=== PATIENT | male | born 1985 | race Caucasian/White ===

== ENCOUNTER 2016-05-28 18:14 | Emergency (ER) | payer MEDICAID ==
[~2016-05-28 18:14] MED LIST: DEPAKOTE PO; FLOMAX0.4 M1 PO; IBUPROFEN800 MG PO; LORTAB 5/500 TA1 TA2 PO; RISPERDAL PO
[2016-05-28 19:05] LABS: AMPHETAMINE NEG (NEG); BARBITURATES NEG (NEG); BENZODIAZEPINES NEG (NEG); COCAINE NEG (NEG); MARIJUANA NEG (NEG); OPIATES NEG (NEG); TRICYCLIC ANTIDEPRESSANTS NEG (NEG); U METHADONE NEG (NEG)
== END 2016-05-28 22:28 | disposition home or self-care (01) ==
LOC: SED 18:14
PROVIDERS: Physician Assistant
DX: F31.9 Bipolar disorder, unspecified (principal); F17.210 Nicotine dependence, cigarettes, uncomplicated
CPT/HCPCS: 36415; 80307; 82947; 99283; G0480

== ENCOUNTER 2016-06-29 13:50 | Emergency (ER) | payer MEDICAID ==
--- NOTE | ~2016-06-29 | CT71 ---
[facility] A Service of [facility] RADIOLOGY TEXT RESULTS PATIENT: NAE WHITING LOCATION: SED : 83 UNIT #: [id number] AGE: [address]: Tony Kelsey MD SEX: M ORDER DR: [id number] [place] [id number] E MR#: [id number] Acc #: [id number] NAME: NAE WHITING : 1985 SEX: M STUDY DATE/TIME: 06/29/2016 13:20 UNIT: SED ROOM: STUDY DESCRIPTION: CT Head Wo Contrast Attending Physician: Tony Kelsey M.D. Ordering Physician: Tony Kelesy M.D. Primary Care Physician: No Primary Care Physician MEDICAL IMAGING REPORT This report is preliminary unless electronic signature is present. EXAM CT of the head without contrast INDICATIONS 30-year-old male with headache since yesterday after falling. TECHNIQUE CT of the head was performed without contrast. This CT exam was performed with one or more of the following radiation dose reduction techniques: automatic control, adjustment of mA and/or kV according to patient size, and iterative reconstruction. COMPARISON Compared with 09/08/2011 FINDINGS Abnormal exam. There is acute nodular intraaxial hemorrhage located in the inferior most aspect of the right temporal lobe. There is some adjacent edema. The hemorrhage is very splotchy and nodular and most of it lies along the posterior margin of the temporal lobe best seen on image 12. There is a additional small rounded area of hemorrhage measuring about 1 cm located more inferiorly on image number 10. There is some mild adjacent swelling of the scalp. Review of the adjacent bone windows demonstrates suggestion of a possible adjacent skull fracture although this may be a suture line although a skull fracture is difficult to completely exclude in this setting. There is no evidence of any significant mass effect. There is no evidence of any midline shift or hydrocephalus. There is no additional hemorrhage. The included orbits are unremarkable. There is mucosal thickening involving multiple paranasal sinuses. IMPRESSION 1. There is acute patchy nodular intraaxial hemorrhage located within the [facility] A Service of [facility] RADIOLOGY TEXT RESULTS PATIENT: NAE WHITING LOCATION: SED : 83 UNIT #: [id number] AGE: [address]: Tony Kelsey MD SEX: M ORDER DR: inferior most aspect of the right temporal lobe with some mild adjacent edema. There is no significant mass effect. There is no midline shift or hydrocephalus. There is no additional hemorrhage. 2. There is a questionable adjacent skull fracture noted. It is however, contiguous with a suture line more inferiorly so I am not sure if this represents an actual acute fracture or if it is a normal appearing suture which is just asymmetric in appearance from the contralateral side. 3. These findings were discussed with Dr. Kelsey in the ER at the time of dictation 2:15 p.m. Dictated by... Kelvin Fitzpatrick M.D. THIS IS AN ELECTRONICALLY VERIFIED REPORT Kelvin Fitzpatrick M.D. at 06/30/2016 4:49 PM ARS/cassidy TD: 06/29/2016 15:29 JOB #: [id number] MEDICAL IMAGING REPORT Page 1 of 1
== END 2016-06-29 15:32 | disposition hospice, home (50) ==
LOC: SED 13:50
DX: S06.300A Unspecified focal traumatic brain injury without loss of consciousness, initial encounter (principal); F17.200 Nicotine dependence, unspecified, uncomplicated; Z79.899 Other long term (current) drug therapy; W19.XXXA Unspecified fall, initial encounter; Y92.009 Unspecified place in unspecified non-institutional (private) residence as the place of occurrence of the external cause
CPT/HCPCS: 70450; 99285

== ENCOUNTER 2016-07-04 23:18 | Emergency (ER) | payer SELFPAY ==
--- NOTE | ~2016-07-04 | CT71 ---
[facility] A Service of [facility] & [facility] RADIOLOGY TEXT RESULTS PATIENT: NAE WHITING LOCATION: SED : 83 UNIT #: [id number] AGE: [address]: Eddie Busch SEX: M ORDER DR: [id number] [address] [address] [id number] E MR#: [id number] Acc #: [id number] NAME: NAE WHITING : 1985 SEX: M STUDY DATE/TIME: 07/05/2016 0:42 UNIT: SED ROOM: STUDY DESCRIPTION: CT Head Wo Contrast Attending Physician: Eddie Busch P.A.-C. Ordering Physician: Eddie Busch P.A.-C. Primary Care Physician: Faraz Zamora M.D. MEDICAL IMAGING REPORT This report is preliminary unless electronic signature is present. EXAM CT head, noncontrast, 07/05/2016 HISTORY 30-year-old male with recent history of head injury and intracranial hemorrhage. The patient fell on 06/28/[address] examination in the ER showed a small amount of acute hemorrhage in the right inferior temporal lobe. He presents to the ED today complaining of persistent head and neck pain. TECHNIQUE CT examination of the head was performed without IV contrast. This CT exam was performed with one or more of the following radiation dose reduction techniques: Automatic exposure control, adjustment of mA and/or kV according to patient size, and iterative reconstruction. FINDINGS A small amount of acute parenchymal cortical or subcortical hemorrhage is again noted in the inferior portion of the right temporal lobe in the floor of the right middle cranial fossa without significant change since the prior study. No new or increasing intracranial hemorrhage is identified. There is no convincing evidence of skull fracture. A new small region of decreased white matter attenuation is noted in the inferior right temporal lobe, new or increased since the prior study. Evolving cerebral contusion is likely. No evidence of associated hemorrhage. Remainder of the examination is negative. IMPRESSION 1. Small amount of acute cortical and/or subcortical post-traumatic hemorrhage in the inferior right temporal lobe seen on the previous STS. [facility] A Service of [facility] & [facility] RADIOLOGY TEXT RESULTS PATIENT: NAE WHITING LOCATION: SED : 83 UNIT #: [id number] AGE: [address]: Eddie Busch PAC SEX: M ORDER DR: study of 06/29/2016 is again identified and has not progressed significantly. No new or increasing intracranial hemorrhage is identified. 2. No convincing acute skull fracture today. 3. Low-attenuation white matter changes in the inferior right frontal lobe, new or increased since the prior study, likely representing evolving, nonhemorrhagic cerebral contusion. 4. The remainder of the examination is negative and unchanged. Dictated by... Freddie Ngo M.D. THIS IS AN ELECTRONICALLY VERIFIED REPORT Freddie Ngo M.D. at 07/05/2016 5:59 AM ASHLEY/rosa TD: 07/05/2016 01:51 JOB #: [id number] MEDICAL IMAGING REPORT Page 1 of 1
--- NOTE | ~2016-07-04 | CR126 ---
[facility] A Service of [facility] & [facility] RADIOLOGY TEXT RESULTS PATIENT: NAE WHITING LOCATION: SED : 83 UNIT #: [id number] AGE: [address]: Eddie Busch SEX: M ORDER DR: [id number] [address] [address] [id number] E MR#: [id number] Acc #: [id number] NAME: NAE WHITING : 1985 SEX: M STUDY DATE/TIME: 07/05/2016 0:50 UNIT: SED ROOM: STUDY DESCRIPTION: CR Foot Complete Min 3 View Lt Attending Physician: Eddie Busch P.A.-C. Ordering Physician: Eddie Busch P.A.-C. Primary Care Physician: Faraz Zamora M.D. MEDICAL IMAGING REPORT This report is preliminary unless electronic signature is present. EXAM Left foot series 07/05/2016 HISTORY 30-year-old male in the ED complaining of persistent foot pain after injury last week. Fell. Additional imaging shows intracranial hemorrhage and a cervical spine fracture. TECHNIQUE Three-view left foot series. FINDINGS The examination is negative. No fracture, dislocation or other osseous abnormality is demonstrated. IMPRESSION Negative left foot. Dictated by... Freddie Ngo M.D. THIS IS AN ELECTRONICALLY VERIFIED REPORT Freddie Ngo M.D. at 07/05/2016 5:59 AM ASHLEY/rosa TD: 07/05/2016 02:00 JOB #: [id number] MEDICAL IMAGING REPORT Page 1 of 1
--- NOTE | ~2016-07-04 | CT52 ---
[facility] A Service of [facility] RADIOLOGY TEXT RESULTS PATIENT: NAE WHITING LOCATION: SED : 83 UNIT #: [id number] AGE: [address]: Eddie Busch SEX: M ORDER DR: [id number] [address] [address] [id number] E MR#: [id number] Acc #: [id number] NAME: NAE WHITING : 1985 SEX: M STUDY DATE/TIME: 07/05/2016 0:46 UNIT: SED ROOM: STUDY DESCRIPTION: CT Cervical Spine Wo Cont Attending Physician: Eddie Busch P.A.-C. Ordering Physician: Eddie Busch P.A.-C. Primary Care Physician: Faraz Zamora M.D. MEDICAL IMAGING REPORT This report is preliminary unless electronic signature is present. EXAM CT cervical spine 07/05/2016 HISTORY 30-year-old male status post head injury last week with intracranial hemorrhage. He returns to the ED today complaining of persistent headache as well as neck pain. C-collar in place. TECHNIQUE Thin-section axial CT images were obtained from the skull base through the upper margin of T3. Sagittal and coronal images were reconstructed. This CT exam was performed with one or more of the following radiation dose reduction techniques: Automatic exposure control, adjustment of mA and/or kV according to patient size, and iterative reconstruction. FINDINGS There is an isolated, nondisplaced vertical fracture through the left side lamina of the C6 vertebra that does not extend to the articular facets. No additional cervical fracture is identified. Cervical disc spaces and cervical vertebral alignment are within normal limits. IMPRESSION 1. Isolated, nondisplaced fracture through the left side lamina of the C6 vertebra. 2. No other cervical fractures identified. The remainder of the examination is negative. Cervical vertebral alignment is normal. Dictated by... Freddie Ngo M.D. [facility] A Service [facility] RADIOLOGY TEXT RESULTS PATIENT: NEA WHITING LOCATION: SED : 83 UNIT #: [id number] AGE: [address]: Eddie Busch SEX: M ORDER DR: THIS IS AN ELECTRONICALLY VERIFIED REPORT Freddie Ngo M.D. at 07/05/2016 5:59 AM ASHLEY/rosa TD: 07/05/2016 01:56 JOB #: [id number] MEDICAL IMAGING REPORT Page 1 of 1
== END 2016-07-05 02:31 | disposition home or self-care (01) ==
LOC: SED 23:18
DX: S12.501A Unspecified nondisplaced fracture of sixth cervical vertebra, initial encounter for closed fracture (principal); S06.330A Contusion and laceration of cerebrum, unspecified, without loss of consciousness, initial encounter; F17.200 Nicotine dependence, unspecified, uncomplicated; X58.XXXA Exposure to other specified factors, initial encounter
CPT/HCPCS: 70450; 72125; 73630; 99284